=== PATIENT | female | born 1930 | race Caucasian/White ===

== ENCOUNTER 2017-04-24 10:07 | Emergency (ER) | payer MEDICARE, OTHER ==
[~2017-04-24] VITALS: Ht 160 cm; Wt 69.5 kg
[~2017-04-24 10:07] MED LIST: ACET-2971 PO; ASPI-1053 PO; CA C1TAB91 PO; FLUO20CA39 PO; FOSI20TA3 PO; HYDR-565 PO; LANS30CA56 PO; LEVO112T5 PO; METO50TA17 PO; MULT-1085 PO; PRAV20TA4 PO; TOPI25TA15 PO; VITC500T PO
[2017-04-24 10:22] LABS: BASOPHILS % (AUTO) 0.3 % (0-1); EOSINOPHILS # (AUTO) 0.2 X10'3 (0-0.9); EOSINOPHILS % (AUTO) 2.3 % (0-6); HEMATOCRIT 36.7 % (35.0-45.0); HEMOGLOBIN 12.4 g/dl (12.0-16.0); LYMPHOCYTES # (AUTO) 0.7 X10'3 (1.1-4.8); LYMPHOCYTES % (AUTO) 10.8 % (21-51); MEAN CORPUSCULAR HEMOGLOBIN 31.2 PG (27.0-31.0); MEAN CORPUSCULAR HGB CONC 33.8 % (33.0-36.5); MEAN CORPUSCULAR VOLUME 92.2 FL (78-98); MEAN PLATELET VOLUME 8.9 FL (7.4-10.4); MONOCYTES # (AUTO) 0.4 X10'3 (0-0.9); MONOCYTES % (AUTO) 6.6 % (2-12); NEUTROPHILS # (AUTO) 5.3 X10'3 (1.8-7.7); PLATELET COUNT 210 X10'3 (140-440); RED BLOOD COUNT 3.98 X10'6 (4.20-5.60); RED CELL DISTRIBUTION WIDTH 13.1 % (11.5-14.5); WHITE BLOOD COUNT 6.6 X10'3 (4.5-11.0)
[2017-04-24 10:32] LABS: PARTIAL THROMBOPLASTIN TIME 29 SECONDS (22-32)
[2017-04-24 10:37] LABS: ALANINE AMINOTRANSFERASE 25 U/L (12-78); ALBUMIN 3.7 G/DL (3.4-5.0); ALKALINE PHOSPHATASE 64 IU/L (46-116); ANION GAP 12 (8-16); ASPARTATE AMINO TRANSFERASE 22 U/L (10-37); BILIRUBIN,TOTAL 0.4 MG/DL (0.1-1.0); BLOOD UREA NITROGEN 27 MG/DL (7-18); BUN/CREATININE RATIO 21.6 (6.6-38.0); CALCIUM 8.8 MG/DL (8.5-10.1); CHLORIDE 104 MMOL/L (99-107); CREATININE 1.25 MG/DL (0.40-0.90); POTASSIUM 3.9 MMOL/L (3.5-5.1); SODIUM 141 MMOL/L (135-145); TOTAL CARBON DIOXIDE 25.5 MMOL/L (24-32); TOTAL PROTEIN 7.3 G/DL (6.4-8.2); eGFR 41 ML/MIN
[2017-04-24 10:40] LABS: GLUCOSE 157 MG/DL (70-104)
[2017-04-24] MEDS ORDERED: HYDROcodone/acetaminophen 10/325mg tab PO ONE (13:35)
[2017-04-24] MEDS ORDERED: ketorolac trometh. 30mg/ml inj. IV ONE (13:35)
[2017-04-24 13:53] LABS: D-DIMER 3.88 MG/L FEU (0-0.50)
[2017-04-24] MEDS ORDERED: HYDR-3973 PO (13:59)
[2017-04-24] MEDS ORDERED: iohexol 350MG/ML 100ml bottle IV ONE (14:26)
[2017-04-24 16:35] VITALS: BP 137/63
== END 2017-04-24 16:37 | disposition home or self-care (01) ==
LOC: ER 10:07
DX: R07.89 Other chest pain (principal); N63.20 Unspecified lump in the left breast, unspecified quadrant; I10 Essential (primary) hypertension; G89.29 Other chronic pain; Z85.3 Personal history of malignant neoplasm of breast; Z88.0 Allergy status to penicillin; Z79.899 Other long term (current) drug therapy; Z79.82 Long term (current) use of aspirin
CPT/HCPCS: 36415; 71045; 71275; 80053; 83880; 84484; 85025; 85379; 85610; 85730; 93005; 96374; 99285; J1885; J7030; Q9967

== ENCOUNTER 2017-06-10 17:06 | Emergency (ER) | payer MEDICARE, OTHER ==
[~2017-06-10] VITALS: Ht 160 cm; Wt 74.1 kg
[2017-06-10 17:48] LABS: BASOPHILS % (AUTO) 0.3 % (0-1); EOSINOPHILS # (AUTO) 0.3 X10'3 (0-0.9); EOSINOPHILS % (AUTO) 2.8 % (0-6); HEMATOCRIT 32.4 % (35.0-45.0); HEMOGLOBIN 11.1 g/dl (12.0-16.0); LYMPHOCYTES # (AUTO) 0.8 X10'3 (1.1-4.8); LYMPHOCYTES % (AUTO) 7.2 % (21-51); MEAN CORPUSCULAR HEMOGLOBIN 31.1 PG (27.0-31.0); MEAN CORPUSCULAR HGB CONC 34.2 % (33.0-36.5); MEAN CORPUSCULAR VOLUME 91.2 FL (78-98); MEAN PLATELET VOLUME 8.6 FL (7.4-10.4); MONOCYTES # (AUTO) 0.9 X10'3 (0-0.9); MONOCYTES % (AUTO) 8.6 % (2-12); NEUTROPHILS # (AUTO) 8.7 X10'3 (1.8-7.7); NEUTROPHILS % (AUTO) 81.1 % (42-75); PLATELET COUNT 208 X10'3 (140-440); RED BLOOD COUNT 3.55 X10'6 (4.20-5.60); RED CELL DISTRIBUTION WIDTH 12.1 % (11.5-14.5); WHITE BLOOD COUNT 10.7 X10'3 (4.5-11.0)
[2017-06-10] MEDS ORDERED: mag hydrox/Alum hydrox/simeth 30ml oral suspension PO ONE ×2 (17:50→20:00)
[2017-06-10] MEDS ORDERED: LIDOcaine Viscous 15ml cup PO ONE (17:50)
[2017-06-10 17:59] LABS: PARTIAL THROMBOPLASTIN TIME 26 SECONDS (22-32)
[2017-06-10 18:02] LABS: ALANINE AMINOTRANSFERASE 62 U/L (12-78); ALBUMIN 3.5 G/DL (3.4-5.0); ALBUMIN/GLOBULIN RATIO 1.1 (1.1-1.5); ALKALINE PHOSPHATASE 74 IU/L (46-116); ANION GAP 10 (8-16); ASPARTATE AMINO TRANSFERASE 106 U/L (10-37); BILIRUBIN,TOTAL 0.5 MG/DL (0.1-1.0); BLOOD UREA NITROGEN 37 MG/DL (7-18); CALCIUM 8.5 MG/DL (8.5-10.1); CHLORIDE 103 MMOL/L (99-107); CREATININE 1.37 MG/DL (0.40-0.90); GLUCOSE 122 MG/DL (70-104); POTASSIUM 4.3 MMOL/L (3.5-5.1); SODIUM 137 MMOL/L (135-145); TOTAL CARBON DIOXIDE 23.6 MMOL/L (24-32); TOTAL PROTEIN 6.6 G/DL (6.4-8.2); eGFR 37 ML/MIN
[2017-06-10] MEDS ORDERED: famotidine/PF 10 mg/ml inj IV ONE (20:25)
[2017-06-10] MEDS ORDERED: pantoprazole 40 MG vial IV ONE (20:25)
[2017-06-10 20:30] VITALS: BP 171/64
[2017-06-10] MEDS ORDERED: metoprolol tartrate 50mg tablet PO ONE (21:20)
[2017-06-10] MEDS ORDERED: PANT-47 PO (21:42)
== END 2017-06-10 22:30 | disposition home or self-care (01) ==
LOC: ER 17:06
DX: R10.13 Epigastric pain (principal); I25.10 Atherosclerotic heart disease of native coronary artery without angina pectoris; I12.9 Hypertensive chronic kidney disease with stage 1 through stage 4 chronic kidney disease, or unspecified chronic kidney disease; N18.9 Chronic kidney disease, unspecified; K21.9 Gastro-esophageal reflux disease without esophagitis; K57.30 Diverticulosis of large intestine without perforation or abscess without bleeding; G89.29 Other chronic pain; Z88.0 Allergy status to penicillin; Z79.82 Long term (current) use of aspirin; Z90.710 Acquired absence of both cervix and uterus
CPT/HCPCS: 36415; 71045; 71250; 74176; 80053; 84484; 85025; 85610; 85730; 96374; 96375; 99285; C9113; J3490

== ENCOUNTER 2017-10-25 18:20 | Inpatient (IN) | payer MEDICARE, OTHER ==
[~2017-10-25] VITALS: Ht 162.6 cm; Wt 70.0 kg
[~2017-10-25 18:20] MED LIST changes: -FOSI20TA3 PO; +FOSI20TA5 PO; -LANS30CA56 PO; +METR500T4 PO; +PANT-47 PO; -PRAV20TA4 PO
[2017-10-25 18:41] LABS: BASOPHILS % (AUTO) 0.6 % (0-1); EOSINOPHILS # (AUTO) 1.8 X10'3 (0-0.9); EOSINOPHILS % (AUTO) 20.4 % (0-6); HEMATOCRIT 35.4 % (35.0-45.0); LYMPHOCYTES # (AUTO) 1.3 X10'3 (1.1-4.8); LYMPHOCYTES % (AUTO) 14.4 % (21-51); MEAN CORPUSCULAR HGB CONC 33.9 % (33.0-36.5); MEAN CORPUSCULAR VOLUME 91.5 FL (78-98); MEAN PLATELET VOLUME 8.4 FL (7.4-10.4); NEUTROPHILS # (AUTO) 4.7 X10'3 (1.8-7.7); NEUTROPHILS % (AUTO) 53.6 % (42-75); PLATELET COUNT 268 X10'3 (140-440); RED BLOOD COUNT 3.87 X10'6 (4.20-5.60); RED CELL DISTRIBUTION WIDTH 13.1 % (11.5-14.5); WHITE BLOOD COUNT 8.8 X10'3 (4.5-11.0)
[2017-10-25 18:52] LABS: PARTIAL THROMBOPLASTIN TIME 27 SECONDS (22-32)
[2017-10-25 18:58] LABS: ALANINE AMINOTRANSFERASE 25 U/L (12-78); ALBUMIN 3.9 G/DL (3.4-5.0); ALBUMIN/GLOBULIN RATIO 1.1 (1.1-1.5); ALKALINE PHOSPHATASE 58 IU/L (46-116); ANION GAP 13 (8-16); ASPARTATE AMINO TRANSFERASE 27 U/L (10-37); BILIRUBIN,TOTAL 0.3 MG/DL (0.1-1.0); BLOOD UREA NITROGEN 31 MG/DL (7-18); BUN/CREATININE RATIO 25.6 (6.6-38.0); CALCIUM 8.8 MG/DL (8.5-10.1); CHLORIDE 97 MMOL/L (99-107); CREATININE 1.21 MG/DL (0.40-0.90); POTASSIUM 4.3 MMOL/L (3.5-5.1); SODIUM 132 MMOL/L (135-145); TOTAL CARBON DIOXIDE 22.3 MMOL/L (24-32); TOTAL PROTEIN 7.3 G/DL (6.4-8.2); eGFR 42 ML/MIN
[2017-10-25 18:59] LABS: GLUCOSE 128 MG/DL (70-104)
[2017-10-25 19:03] LABS: TROPONIN I < 0.04 NG/ML (0.0-0.05)
[2017-10-25 19:08] LABS: PLATELET ESTIMATE NORMAL; TOTAL CELLS COUNTED 100
[2017-10-25] MEDS ORDERED: aspirin 81mg tab.chew PO ONE (19:20)
[2017-10-25] MEDS ORDERED: metoclopramide 5 mg/ml inj IV PRN (19:40)
[2017-10-25] MEDS ORDERED: bisacodyl 10mg suppository rectal RC PRN (19:40)
[2017-10-25] MEDS ORDERED: HYDROmorphone 1 mg/ml syringe IV PRN ×2 (19:40)
[2017-10-25] MEDS ORDERED: mag hydrox/Alum hydrox/simeth 30ml oral suspension PO PRN (19:40)
[2017-10-25] MEDS ORDERED: diphenhydrAMINE 25mg capsule PO PRN (19:40)
[2017-10-25] MEDS ORDERED: diphenhydrAMINE 50 mg/ml inj IV PRN (19:40)
[2017-10-25] MEDS ORDERED: acetaminophen 650mg rectal suppository RC PRN (19:40)
[2017-10-25] MEDS ORDERED: HYDROcodone/acetaminophen 5mg/325mg tablet PO PRN (19:40)
[2017-10-25] MEDS ORDERED: ondansetron/PF 4mg/2ml inj IV PRN (19:40)
[2017-10-25] MEDS ORDERED: magnesium hydroxide 30ml (MOM) UD suspension PO PRN (19:40)
[2017-10-25] MEDS ORDERED: normal saline 1000ml 1,000 ML IV SCH (19:40)
[2017-10-25] MEDS ORDERED: heparin, porcine 5000 units/ml vial SQ SCH (20:00)
[2017-10-25 20:03] LABS: HEMOGLOBIN A1C 6.4 % (4.5-6.2)
[2017-10-25 20:11] LABS: MAGNESIUM 2.1 MG/DL (1.5-2.4); PHOSPHORUS 4.5 MG/DL (2.3-4.5)
[2017-10-25] MEDS: docusate sod 100mg capsule PO SCH (20:26)
[2017-10-25 20:27] LABS: CLARITY,URINE SLIGHTLY CLOUDY (Clear); COLOR,URINE YELLOW (Yellow); GLUCOSE, URINE NEGATIVE (Neg); KETONES,URINE NEGATIVE (Neg); LEUKOCYTE ESTERASE ,URINE MODERATE (Neg); NITRITES, URINE POSITIVE (Neg); OCCULT BLOOD,URINE NEGATIVE (Neg); PROTEIN,URINE NEGATIVE (Neg); UROBILINOGEN,URINE 0.2 E.U/dL (0.2-1.0)
[2017-10-25 20:34] LABS: UA COLLECTION TYPE CLN CATCH MIDSTREAM
[2017-10-25 20:35] LABS: BACTERIA,URINE 4+ /HPF (Neg); RBC,URINE 0-2 /HPF (0-2); SQUAMOUS EPITHELIAL CELL,UR FEW /LPF (FEW); WBC CLUMPS,URINE FEW /HPF (NEGATIVE); WBC,URINE 20-30 /HPF (0-4)
[2017-10-25] MEDS ORDERED: clopidogrel 300mg tablet PO ONE (20:55)
[2017-10-25] MEDS ORDERED: temazepam 15mg capsule PO PRN (21:00)
[2017-10-25 21:16] VITALS: BP 157/67
[2017-10-25] MEDS: atorvastatin 20mg tablet PO SCH (22:07)
[2017-10-25] MEDS: normal saline 1000ml 1,000 ML IV SCH (22:17)
[2017-10-26] VITALS (8 sets, daily range): BP systolic 124–187; BP diastolic 49–73
[2017-10-26] MEDS: HYDROcodone/acetaminophen 10/325mg tab PO PRN ×3 (00:56→22:42)
[2017-10-26 06:12] LABS: BASOPHILS % (AUTO) 0.4 % (0-1); EOSINOPHILS # (AUTO) 0.9 X10'3 (0-0.9); EOSINOPHILS % (AUTO) 11.7 % (0-6); HEMATOCRIT 32.5 % (35.0-45.0); HEMOGLOBIN 10.9 g/dl (12.0-16.0); LYMPHOCYTES % (AUTO) 13.1 % (21-51); MEAN CORPUSCULAR HGB CONC 33.7 % (33.0-36.5); MONOCYTES # (AUTO) 0.8 X10'3 (0-0.9); NEUTROPHILS # (AUTO) 5.2 X10'3 (1.8-7.7); NEUTROPHILS % (AUTO) 64.8 % (42-75); PLATELET COUNT 232 X10'3 (140-440); RED BLOOD COUNT 3.53 X10'6 (4.20-5.60); RED CELL DISTRIBUTION WIDTH 13.1 % (11.5-14.5)
[2017-10-26 06:34] LABS: ALANINE AMINOTRANSFERASE 20 U/L (12-78); ALBUMIN 3.2 G/DL (3.4-5.0); ALBUMIN/GLOBULIN RATIO 1.1 (1.1-1.5); ALKALINE PHOSPHATASE 46 IU/L (46-116); ANION GAP 11 (8-16); ASPARTATE AMINO TRANSFERASE 24 U/L (10-37); BILIRUBIN,TOTAL 0.4 MG/DL (0.1-1.0); BLOOD UREA NITROGEN 24 MG/DL (7-18); BUN/CREATININE RATIO 22.9 (6.6-38.0); CALCIUM 8.2 MG/DL (8.5-10.1); CHLORIDE 101 MMOL/L (99-107); CHOL/HDL RATIO 3.3 (0.00-4.99); CHOLESTEROL 155 MG/DL (0-200); CREATININE 1.05 MG/DL (0.40-0.90); GLUCOSE 113 MG/DL (70-104); HDL CHOLESTEROL 47 MG/DL (35-60); LDL CHOLESTEROL 93 MG/DL (50-100); POTASSIUM 4.2 MMOL/L (3.5-5.1); SODIUM 135 MMOL/L (135-145); TOTAL CARBON DIOXIDE 23.2 MMOL/L (24-32); TOTAL PROTEIN 6.1 G/DL (6.4-8.2); TRIGLYCERIDES 131 MG/DL (20-135); eGFR 50 ML/MIN
[2017-10-26] MEDS: topiramate 25mg tablet PO SCH ×2 (08:00→20:51)
[2017-10-26] MEDS: aspirin 81mg tab.chew PO SCH (09:03)
[2017-10-26] MEDS: docusate sod 100mg capsule PO SCH ×2 (09:04→20:00)
[2017-10-26] MEDS: FLUoxetine 20mg capsule PO SCH (09:06)
[2017-10-26] MEDS: pantoprazole 40mg Tablet.DR PO SCH (09:06)
[2017-10-26] MEDS: levoTHYROXINE 112mcg tablet PO SCH (09:06)
[2017-10-26] MEDS: atorvastatin 20mg tablet PO SCH (09:06)
[2017-10-26] MEDS: normal saline 1000ml 1,000 ML IV SCH ×2 (09:16→20:39)
[2017-10-26] MEDS: levoFLOXACIN-Levaquin 250mg/D5 50 ML IV SCH (09:16)
[2017-10-26] MEDS: acetaminophen 325mg tablet PO PRN (09:34)
[2017-10-26] MEDS: clopidogrel 75mg tablet PO SCH (20:40)
[2017-10-27 02:00] VITALS: BP 162/52
[2017-10-27] MEDS: normal saline 1000ml 1,000 ML IV SCH ×2 (02:52→12:52)
[2017-10-27 06:00] VITALS: BP 141/56
[2017-10-27 06:06] LABS: BASOPHILS % (AUTO) 0.5 % (0-1); EOSINOPHILS # (AUTO) 1.8 X10'3 (0-0.9); EOSINOPHILS % (AUTO) 23.8 % (0-6); HEMATOCRIT 29.3 % (35.0-45.0); LYMPHOCYTES % (AUTO) 13.2 % (21-51); MEAN CORPUSCULAR HEMOGLOBIN 31.4 PG (27.0-31.0); MEAN CORPUSCULAR HGB CONC 34.2 % (33.0-36.5); MEAN CORPUSCULAR VOLUME 91.7 FL (78-98); MEAN PLATELET VOLUME 8.6 FL (7.4-10.4); MONOCYTES # (AUTO) 0.8 X10'3 (0-0.9); MONOCYTES % (AUTO) 10.9 % (2-12); NEUTROPHILS % (AUTO) 51.6 % (42-75); PLATELET COUNT 202 X10'3 (140-440); RED BLOOD COUNT 3.19 X10'6 (4.20-5.60); RED CELL DISTRIBUTION WIDTH 13.3 % (11.5-14.5); WHITE BLOOD COUNT 7.8 X10'3 (4.5-11.0)
[2017-10-27 06:18] LABS: ALANINE AMINOTRANSFERASE 18 U/L (12-78); ALBUMIN 2.8 G/DL (3.4-5.0); ALKALINE PHOSPHATASE 55 IU/L (46-116); ANION GAP 8 (8-16); ASPARTATE AMINO TRANSFERASE 20 U/L (10-37); BILIRUBIN,TOTAL 0.3 MG/DL (0.1-1.0); BLOOD UREA NITROGEN 22 MG/DL (7-18); BUN/CREATININE RATIO 18.3 (6.6-38.0); CALCIUM 7.9 MG/DL (8.5-10.1); CHLORIDE 107 MMOL/L (99-107); GLUCOSE 97 MG/DL (70-104); POTASSIUM 4.2 MMOL/L (3.5-5.1); SODIUM 137 MMOL/L (135-145); TOTAL CARBON DIOXIDE 22.3 MMOL/L (24-32); TOTAL PROTEIN 5.7 G/DL (6.4-8.2); eGFR 43 ML/MIN
[2017-10-27] MEDS: levoFLOXACIN-Levaquin 250mg/D5 50 ML IV SCH (07:53)
[2017-10-27] MEDS: pantoprazole 40mg Tablet.DR PO SCH (07:54)
[2017-10-27] MEDS: FLUoxetine 20mg capsule PO SCH (07:54)
[2017-10-27] MEDS: levoTHYROXINE 112mcg tablet PO SCH (07:54)
[2017-10-27] MEDS: atorvastatin 20mg tablet PO SCH (07:54)
[2017-10-27] MEDS: aspirin 81mg tab.chew PO SCH (07:54)
[2017-10-27] MEDS: clopidogrel 75mg tablet PO SCH (07:56)
[2017-10-27] MEDS: docusate sod 100mg capsule PO SCH (07:56)
[2017-10-27 09:39] LABS: RPR Non Reactive (Non Reactive)
[2017-10-27] MEDS ORDERED: ASPI-1053 PO (15:22)
[2017-10-27] MEDS ORDERED: CLOP75TA35 PO (15:22)
[2017-10-27] MEDS ORDERED: ATOR20TA66 PO (15:22)
[2017-10-27] MEDS ORDERED: LEVO500T89 PO (15:23)
[2017-10-27] MEDS: acetaminophen 325mg tablet PO PRN (16:25)
[2017-10-27] MEDS ORDERED: lactobacillus rhamnosus 10,000 MMU CELLS/CAPSULE PO SCH (20:00)
== END 2017-10-27 18:25 | disposition home health service (06) | DRG 690 ==
LOC: ER 18:21 → ED HOLD 19:40 → ORTHO 4S 20:45
PROVIDERS: ADMIT Family Medicine; ATTEND Family Medicine
DX: N30.00 Acute cystitis without hematuria (principal); N17.9 Acute kidney failure, unspecified; G45.9 Transient cerebral ischemic attack, unspecified; I16.1 Hypertensive emergency; E87.1 Hypo-osmolality and hyponatremia; K21.9 Gastro-esophageal reflux disease without esophagitis; E03.9 Hypothyroidism, unspecified; G25.0 Essential tremor; D64.9 Anemia, unspecified; B96.89 Other specified bacterial agents as the cause of diseases classified elsewhere; G89.4 Chronic pain syndrome; I12.9 Hypertensive chronic kidney disease with stage 1 through stage 4 chronic kidney disease, or unspecified chronic kidney disease; I65.23 Occlusion and stenosis of bilateral carotid arteries; B96.20 Unspecified Escherichia coli [E. coli] as the cause of diseases classified elsewhere; N18.9 Chronic kidney disease, unspecified; H55.00 Unspecified nystagmus; Z88.0 Allergy status to penicillin; Z88.6 Allergy status to analgesic agent; Z79.899 Other long term (current) drug therapy; Z79.02 Long term (current) use of antithrombotics/antiplatelets; Z79.891 Long term (current) use of opiate analgesic; Z79.82 Long term (current) use of aspirin; Z79.890 Hormone replacement therapy; Z85.3 Personal history of malignant neoplasm of breast
CPT/HCPCS: 36415; 70450; 70544; 70551; 71045; 80053; 80061; 81001; 83036; 83735; 83880; 84100; 84443; 84484; 85025; 85610; 85730; 86592; 87070; 87077; 87088; 87186; 93306; 93880; 97162; 97530; 99285; A6258; J1644; J1956; J7030

== ENCOUNTER 2018-05-12 07:21 | Day surgery (SDC) | payer MEDICARE, OTHER ==
[2018-05-12] VITALS (7 sets, daily range): BP systolic 149–185; BP diastolic 62–89
[~2018-05-12] VITALS: Ht 160 cm; Wt 67.1 kg
[~2018-05-12 07:21] MED LIST changes: -ASPI-1053 PO; +ASPI81TA52 PO; +DOCUMENT DATE & TIME OF BETA-BLOCKER PO ONE; -FOSI20TA5 PO; +FOSI20TA97 PO; -HYDR-565 PO; +LANS30CA37 PO; -METR500T4 PO; -PANT-47 PO; +PRAV20TA4 PO; +ceFAZolin 2gm in dextrose, iso 100 ML IV ONE; +famotidine 20mg tablet PO ONE; +ringers solution, lacted 1,000 ML IV SCH
[2018-05-12 08:46] LABS: BASOPHILS % (AUTO) 0.6 % (0-1); EOSINOPHILS # (AUTO) 0.6 X10'3 (0-0.9); EOSINOPHILS % (AUTO) 8.2 % (0-6); LYMPHOCYTES # (AUTO) 0.9 X10'3 (1.1-4.8); LYMPHOCYTES % (AUTO) 11.6 % (21-51); MEAN CORPUSCULAR HEMOGLOBIN 30.9 PG (27.0-31.0); MEAN CORPUSCULAR HGB CONC 33.1 g/dL (33.0-36.5); MEAN CORPUSCULAR VOLUME 93.2 FL (78-98); MEAN PLATELET VOLUME 9.5 FL (7.4-10.4); MONOCYTES # (AUTO) 0.8 X10'3 (0-0.9); MONOCYTES % (AUTO) 10.2 % (2-12); NEUTROPHILS # (AUTO) 5.3 X10'3 (1.8-7.7); NEUTROPHILS % (AUTO) 69.4 % (42-75); PRE OP HEMATOCRIT 38.8 % (35.0-45.0); PRE OP HEMOGLOBIN 12.9 g/dL (12.0-16.0); PRE OP PLATELET COUNT 218 X10'3 (140-440); RED BLOOD COUNT 4.17 X10'6 (4.20-5.60); RED CELL DISTRIBUTION WIDTH 12.1 % (11.5-14.5)
[2018-05-12] MEDS ORDERED: sevoflurane 250ml liquid IH ONE (08:51)
[2018-05-12] MEDS ORDERED: midazolam 2 mg/2 ml injection ONE (08:54)
[2018-05-12] MEDS ORDERED: fentaNYL/PF 50MCG/1 ML 2ML syringe ONE (08:54)
[2018-05-12 08:55] LABS: ALBUMIN 4.1 G/DL (3.4-5.0); ALBUMIN/GLOBULIN RATIO 1.1 (1.1-1.5); ALKALINE PHOSPHATASE 75 IU/L (46-116); BLOOD UREA NITROGEN 30 MG/DL (7-18); BUN/CREATININE RATIO 26.3 (6.6-38.0); CALCIUM 9.1 MG/DL (8.5-10.1); CHLORIDE 104 MMOL/L (99-107); CREATININE 1.14 MG/DL (0.40-0.90); PRE OP ALT 28 U/L (30-65); PRE OP ANION GAP 8 (8-16); PRE OP AST 26 U/L (10-37); PRE OP BILIRUB, TOTAL 0.2 MG/DL (0.0-1.0); PRE OP POTASSIUM 4.9 MMOL/L (3.4-5.1); PRE OP SODIUM 140 MMOL/L (135-145); TOTAL CARBON DIOXIDE 27.8 MMOL/L (24-32); TOTAL PROTEIN 7.8 G/DL (6.4-8.2); eGFR 45 ML/MIN
[2018-05-12 08:57] LABS: PRE OP GLUCOSE 99 MG/DL (70-104)
[2018-05-12] MEDS ORDERED: ePHEDrine 50MG/ML INJ. ONE (09:14)
[2018-05-12] MEDS ORDERED: propofol inj 20 ML IV ONE (09:15)
--- NOTE | 2018-05-12 09:25 | NUR ---
Received from OR via [facility] , accompanied by Anesthesiologist TRINY and report given by Anesthesiolgist. PATIENT WITH 20G PIV IN RIGHT UE RUNNING LR AT 100. LEFT NECK INCISION DERMABONDED CLOSED. NO DRAINAGE. Addendum: 05/12/18 at 0935 by Karl Adames RN, RN Amended: Links added.
[2018-05-12] MEDS ORDERED: ringers solution, lacted 1,000 ML IV SCH (09:37)
[2018-05-12] MEDS ORDERED: proCHLORperazine 10 MG/2 ml inj IV PRN (09:40)
[2018-05-12] MEDS ORDERED: meperidine/PF 25mg/ml syringe IV PRN ×3 (09:40)
[2018-05-12] MEDS ORDERED: ondansetron/PF 4mg/2ml inj IV PRN (09:40)
--- NOTE | 2018-05-12 10:25 | NUR ---
ALL DC CRITERIA HAS BEEN MET. IV TAKEN OUT WITHOUT COMPLICATIONS. ALL INSTRUCTIONS COVERED AND ALL QUESTIONS ANSWERED. DRESSINGS CDI. OUT VIA WHEELCHAIR TO PERSONAL VEHICLE WHERE PATIENT WAS SECURED IN AND DRIVEN HOME BY FAMILY. PATIENT VOIDED AND AMBULATED BACK TO ROOM WITH CGA. FRIEND PRESENT TO DRIVE PATIENT HOME. NO NAUSEA. NO PAIN, NO DRAINAGE. Addendum: 05/12/18 at 1103 by Karl Adames RN, RN Amended: Links added.
== END 2018-05-12 10:25 | disposition home or self-care (01) ==
LOC: PAS 07:21
PROVIDERS: ATTEND Surgery
PROC: 0HB4XZZ Excision of Neck Skin, External Approach (ICD-10-PCS; principal; 2018-05-12 08:51)
DX: L08.9 Local infection of the skin and subcutaneous tissue, unspecified (principal); R22.1 Localized swelling, mass and lump, neck; D64.9 Anemia, unspecified; M19.90 Unspecified osteoarthritis, unspecified site; Z85.3 Personal history of malignant neoplasm of breast; Z80.0 Family history of malignant neoplasm of digestive organs; Z88.0 Allergy status to penicillin; Z88.8 Allergy status to other drugs, medicaments and biological substances; I10 Essential (primary) hypertension; Z72.89 Other problems related to lifestyle; Z79.01 Long term (current) use of anticoagulants; Z90.710 Acquired absence of both cervix and uterus; Z98.890 Other specified postprocedural states; L72.3 Sebaceous cyst
CPT/HCPCS: 11421; 36415; 80053; 85025; J0690; J2250; J2704; J3010; J7120; A7000

== ENCOUNTER 2019-01-30 22:39 | Emergency (ER) | payer MEDICARE, OTHER ==
[~2019-01-30] VITALS: Ht 160 cm; Wt 75.0 kg
[~2019-01-30 22:39] MED LIST changes: -DOCUMENT DATE & TIME OF BETA-BLOCKER PO ONE; -ceFAZolin 2gm in dextrose, iso 100 ML IV ONE; -famotidine 20mg tablet PO ONE; -ringers solution, lacted 1,000 ML IV SCH
[2019-01-30] MEDS ORDERED: acetaminophen 325mg tablet PO ONE (23:45)
[2019-01-31 00:05] VITALS: BP 173/65
== END 2019-01-31 00:08 | disposition home or self-care (01) ==
LOC: ER 22:40
DX: S80.01XA Contusion of right knee, initial encounter (principal); I10 Essential (primary) hypertension; K21.9 Gastro-esophageal reflux disease without esophagitis; G89.21 Chronic pain due to trauma; K83.9 Disease of biliary tract, unspecified; E07.9 Disorder of thyroid, unspecified; Z88.0 Allergy status to penicillin; Z88.5 Allergy status to narcotic agent; Z79.899 Other long term (current) drug therapy; Z85.9 Personal history of malignant neoplasm, unspecified; Z87.448 Personal history of other diseases of urinary system; Z98.890 Other specified postprocedural states; W18.30XA Fall on same level, unspecified, initial encounter; Y93.89 Activity, other specified; Y92.89 Other specified places as the place of occurrence of the external cause; Y99.8 Other external cause status
CPT/HCPCS: 73564; 99284